=== PATIENT | male | born 1965 | race Caucasian/White ===

== ENCOUNTER 2017-08-03 16:41 | Emergency (ER) | payer OTHER ==
[~2017-08-03] VITALS: Ht 195.6 cm; Wt 127.0 kg
[2017-08-03 16:44] VITALS: BP 148/86; PULSE 86; RESP 18; TEMP 98.3; O2SAT 96
[2017-08-03 17:15] VITALS: O2SAT 94
[2017-08-03] MEDS ORDERED: SODIUM CHLORIDE 0.9% FLUSH 10 ML FLUSH IVF PRN (17:15)
[2017-08-03 17:34] LABS: AUTOMATED NEUTROPHIL # 4.1 TH/MM3 (1.8-7.7); BASOPHIL # 0.1 TH/MM3 (0-0.2); EOSINOPHIL # 0.1 TH/MM3 (0-0.4); EOSINOPHIL % 1.4 % (0.0-4.0); HEMATOCRIT 43.7 % (39.0-51.0); HEMOGLOBIN 15.1 GM/DL (13.0-17.0); LYMPH % 31.4 % (9.0-44.0); LYMPHOCYTE # 2.1 TH/MM3 (1.0-4.8); MEAN CELL VOLUME 82.6 FL (80.0-100.0); MEAN CORPUSCULAR HEMOGLOBIN 28.5 PG (27.0-34.0); MEAN CORPUSCULAR HGB CONC 34.5 % (32.0-36.0); MEAN PLATELET VOLUME 7.3 FL (7.0-11.0); MONO % 5.1 % (0.0-8.0); MONOCYTE # 0.3 TH/MM3 (0-0.9); NEUT % 61.1 % (16.0-70.0); PLATELET COUNT 251 TH/MM3 (150-450); RED BLOOD COUNT 5.29 MIL/MM3 (4.50-5.90); RED CELL DISTRIBUTION WIDTH 14.9 % (11.6-17.2); WHITE BLOOD COUNT 6.7 TH/MM3 (4.0-11.0)
[2017-08-03 17:51] LABS: CALCIUM 9.2 MG/DL (8.5-10.1)
[2017-08-03 17:55] LABS: CREATININE 0.84 MG/DL (0.60-1.30)
[2017-08-03] MEDS ORDERED: IOHEXOL 350 MG/ML 10 ML VIAL (for RAD DIAG) IVCONTRAST ONE (18:17)
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
[2017-08-03] MEDS ORDERED: ROBA750T PO (18:49)
[2017-08-03] MEDS ORDERED: IBUP1TAB7 PO (18:49)
[2017-08-03] MEDS ORDERED: IBUPROFEN 800 MG TAB PO ONE (19:15)
== END 2017-08-03 19:43 | disposition home or self-care (01) ==
LOC: PHEFT 16:41
DX: S39.012A Strain of muscle, fascia and tendon of lower back, initial encounter (principal); R51 Headache; M54.2 Cervicalgia; M54.6 Pain in thoracic spine; R10.9 Unspecified abdominal pain; E11.9 Type 2 diabetes mellitus without complications; V89.2XXA Person injured in unspecified motor-vehicle accident, traffic, initial encounter
CPT/HCPCS: 70450; 71045; 72072; 72110; 72125; 74177; 80048; 85025; 99285; Q9967